=== PATIENT | female | born 1985 | race Caucasian/White ===

== ENCOUNTER 2021-05-07 13:40 | Emergency (ER) | payer OTHER, SELFPAY ==
--- NOTE | ~2021-05-07 | XR_ITS ---
XR chest 2V DATE: 05/07/2021 14:42 INDICATION: Nighttime coughing, difficulty breathing. Smoker. TECHNIQUE: 2 views COMPARISON: None FINDINGS: A catheter overlies the right upper quadrant of the abdomen. Approximately 1 cm calcificati on overlying the right renal silhouette. Normal heart size. No hilar or mediastinal enlargement. No pulmonary infiltrate or consolidation, ple ural effusion or pulmonary vascular congestion or pneumothorax. IMPRESSION: No active cardiopulmonary disease Right renal large calcified calculus and right internal urinary stent Reviewed, dictated and finalized at location A.
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
[2021-05-07 13:52] VITALS: BP 121/73; PULSE 74; RESP 16; TEMP 35.8; O2SAT 98
--- NOTE | 2021-05-07 13:53 | ECG_ITS ---
Measurements Intervals [place] Rate: 72 P: 11 CO: 154 QRS: 20 QRSD: 97 T: 28 QT: 394 QTc: 433 Interpretive Statements SINUS RHYTHM INCOMPLETE RIGHT BUNDLE BRANCH BLOCK BORDERLINE ECG Electronically Signed On 05-08-2021 8:11:31 CDT by Lamonte Black D.O.
== END 2021-05-07 15:20 | disposition short-term general hospital (02) ==
PROVIDERS: Emergency Provider Nurse Practitioner Family
DX: R06.02 Shortness of breath (principal); R07.9 Chest pain, unspecified; Z86.16 Personal history of COVID-19; Z96.653 Presence of artificial knee joint, bilateral
CPT/HCPCS: 71046; 93005; 99213; G0463

== ENCOUNTER 2021-07-27 09:01 | Emergency (ER) | payer OTHER, SELFPAY ==
[2021-07-27 09:16] VITALS: BP 144/90; PULSE 136; RESP 16; TEMP 37.4; O2SAT 98
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
== END 2021-07-27 10:12 | disposition short-term general hospital (02) ==
PROVIDERS: Emergency Provider Nurse Practitioner
DX: R22.0 Localized swelling, mass and lump, head (principal); J02.0 Streptococcal pharyngitis; Z86.16 Personal history of COVID-19; Z96.652 Presence of left artificial knee joint
CPT/HCPCS: 87880; 99215; G0463

== ENCOUNTER 2021-07-27 10:42 | Emergency (ER) | payer OTHER, SELFPAY ==
--- NOTE | ~2021-07-27 | CT_ITS ---
EXAMINATION: CT soft tissue neck w con EXAM DATE: 07/27/2021 13:15 INDICATION: Muffled speech, sore throat. Positive strep throat. TECHNIQUE: Spiral CT of the neck was performed following intravenous injection of 75 mL Omnipaque 350 . Axial, coronal and sagittal images were reviewed. The dose-length product (DLP) for this examinat ion was 590.24 mGy-cm. The exposure was tailored according to patient size (auto mA exposure control ), and iterative reconstruction (ASIR) was used as additional dose reduction technique. There is no prior study for comparison. FINDINGS: The left nasopharyngeal and lingual tonsils are edematous, with indistinct adjacent fat percy modesta and mild stranding in the left parapharyngeal fat and upper cervical prevertebral. There is a foc al low-density region between these 2 tonsils measuring 6 x 10 mm, possible tiny early abscess. The l eft piriform sinus is collapsed from regional edema. There is some narrowing of the oropharynx. No pr evertebral abscess. Bilateral internal jugular chain lymphadenopathy, lymph nodes measuring up to 1.5 x 1.2 on the left, 1.7 x 1.5 on the right, probably reactive. The thyroid gland is unremarkable. The submandibular and parotid glands are symmetric. The supe rior mediastinum is unremarkable. Epiglottis is normal in thickness. Parapharyngeal and pre-glotti c fat planes are preserved. The opacified vasculature is patent, no jugular venous thrombosis. The orbits are unremarkable. Visualized sinuses and mastoid air cells are well aerated. Lung apices are clear. Multiple dental cavities. Mild cervical spondylosis. IMPRESSION: 1. Edematous left lingual, nasopharyngeal tonsil with suspicion of tiny early developing abscess bet ween. 2. Mild edema in upper cervical prevertebral and left parapharyngeal fat planes without abscess or e xtension into the chest. 3. Reactive lymphadenopathy. Reviewed, dictated and finalized at location B. LE UNIT ASSISTANT IMPRESSION: 1. Edematous left lingual, nasopharyngeal tonsil with suspicion of tiny early developing abscess between. 2. Mild edema in upper cervical prevertebral and left parapharyngeal fat plane s without abscess or extension into the chest. 3. Reactive lymphadenopathy.
[2021-07-27 10:40] VITALS: BP 139/94; PULSE 118; RESP 14; TEMP 37.7; O2SAT 97
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
[2021-07-27] MEDS: KETOROLAC 30 MG/ML VIAL (*BKC) IV PUSH (11:49)
[2021-07-27] MEDS: CLINDAMYCIN 900 MG/D5W 50 ML 900 MG/50 ML PIGGYBACK 50 MG IVPB (11:49)
[2021-07-27] MEDS: SODIUM CHLORIDE 0.9% IV 1,000 ML 999 ML IV CONT (11:49)
[2021-07-27 11:50] LABS: Basophils Absolute Auto 0.1 K/mm3 (0.0-0.1); Basophils Percent Auto 0.3 % (0.2-1.2); Eosinophils Absolute Auto 0.2 K/mm3 (0-0.3); Hematocrit 32.6 % (37.0-47.0); Immature Granulocyte Absolute 0.09 K/mm3 (0.00-0.031); Immature Granulocyte Percent A 0.6 % (0-0.5); Lymphocytes Absolute Auto 2.58 K/mm3 (0.9-3.2); Mean Corpuscular HGB Conc 33.7 g/dl (32-36); Mean Corpuscular Hemoglobin 31.9 pg (26-34); Mean Corpuscular Volume 94.5 fl (80-100); Mean Platelet Volume 9.1 fl (7.4-10.4); Monocytes Absolute Auto 1.7 K/mm3 (0.1-0.6); Monocytes Percent Auto 11.9 % (2.6-8.5); Neutrophils Absolute Auto 9.8 K/mm3 (1.3-6.7); Neutrophils Percent Auto 68.2 % (45.5-73.1); Platelet Count Result 417 k/mm3 (150-375); Red Blood Count 3.45 M/mm3 (4.2-5.4); Red Cell Distribution Width 12.1 % (11.5-14.5); White Blood Count 14.4 K/mm3 (4.5-10.0)
[2021-07-27 12:08] LABS: Alanine Aminotransferase 10 U/L (4-35); Albumin Level 4.1 g/dL (3.5-5.1); Alkaline Phosphatase 88 U/L (38-126); Anion Gap 8 mmol/L (8-16); Aspartate Amino Transferase 17 U/L (14-36); Bilirubin,Total 0.7 mg/dL (0.2-1.3); Blood Urea Nitrogen 9 mg/dL (7-17); CRP 7.9 mg/dL (<1.0); Calcium 8.8 mg/dL (8.4-10.2); Carbon Dioxide 28 mmol/L (22-30); Chloride 97 mmol/L (98-107); Estimated CRCL calculation 49 ml/min; Estimated Glomerular Filt Rate 50; Glucose 88 mg/dL (65-110); Potassium 3.8 mmol/L (3.4-5.0); Sodium 133 mmol/L (137-145)
[2021-07-27 12:29] LABS: Lactic Acid Reflex < 0.5 mmol/L (0.7-2.1)
[2021-07-27 14:43] VITALS: RESP 16
[2021-07-27 17:08] VITALS: BP 117/67; PULSE 95; RESP 18; O2SAT 98
[2021-07-27] MEDS: LIDO 1%/EPINEPHRINE 1:100,000 10 ML VIAL (17:43)
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
--- NOTE | 2021-07-27 17:58 | WPDPROCEDUR ---
Procedures Abscess I/D Site: other (left kathie tonsillar) Comments: left peritonsillar region infiltrated with 3cc of 1 percent lidocaine with 1:100,000 parts epi. 11 blade utilized to cut the mucosa over the peritonsillar region. Curved yuri hemostat utilized to open the space widely. Scant fluid encountered. Patient tolerated the procedure well.
[2021-07-27] MEDS: BENZOCAINE/TETRACAINE SPRAY (*SP) 56 ML AEROSOL 1 SPRAY (18:04)
== END 2021-07-27 19:24 | disposition home or self-care (01) ==
PROVIDERS: Emergency Provider General Practice
DX: J36 Peritonsillar abscess (principal); Z87.442 Personal history of urinary calculi; Z86.16 Personal history of COVID-19
CPT/HCPCS: 36415; 42700; 70491; 80053; 81025; 83605; 85025; 86140; 87880; 96361; 96365; 96366; 96372; 96375; 99284; A9270; J1100; J1885; J7030; Q9967

== ENCOUNTER 2025-02-25 14:02 | Emergency (ER) | payer OTHER, SELFPAY ==
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
[2025-02-25 14:15] VITALS: BP 155/108; PULSE 94; RESP 18; TEMP 37.3; O2SAT 97
[2025-02-25] MEDS: dexAMETHasone SOD PHOS INJ 10 MG/ML 1 ML VIAL IM (14:24)
== END 2025-02-25 15:00 | disposition home or self-care (01) ==
PROVIDERS: Emergency Provider Nurse Practitioner Family
DX: L23.7 Allergic contact dermatitis due to plants, except food (principal); F12.90 Cannabis use, unspecified, uncomplicated; Z96.652 Presence of left artificial knee joint; Z86.16 Personal history of COVID-19
CPT/HCPCS: 96372; 99213; G0463; J1100